=== PATIENT | female | born 1965 | race Caucasian/White ===

== ENCOUNTER 2017-04-26 16:58 | Emergency (ER) | payer OTHER ==
[~2017-04-26] VITALS: Ht 167.6 cm; Wt 100.8 kg
[~2017-04-26 16:58] MED LIST: Ecotrin PO; NAPROSYN500 MG PO; NOHOMEMEDS; PRAVACHOL20 MG PO; PriLOSEC PO
[2017-04-26 17:17] VITALS: BP 124/83
[2017-04-26] MEDS ORDERED: VISTARIL50 MG PO (18:24)
[2017-04-26] MEDS ORDERED: AQUAPHOR OINTM105 GM TP (18:24)
[2017-04-26] MEDS ORDERED: PREDNISONE20 MG PO (18:24)
== END 2017-04-26 18:57 | disposition home or self-care (01) ==
LOC: EME 16:58
DX: L85.3 Xerosis cutis (principal); L29.9 Pruritus, unspecified; L25.9 Unspecified contact dermatitis, unspecified cause
CPT/HCPCS: 99281; 99283